=== PATIENT | male | born 1970 | race Caucasian/White ===

== ENCOUNTER 2020-11-20 04:47 | Day surgery (SDC) | payer OTHER ==
[2020-11-19 15:10] VITALS: BMI 31.1
[2020-11-20] MEDS ORDERED: BUPIVACAINE HCL/PF 0.5% (5MG/ML) 10 ML VIAL ONE (11:23)
[2020-11-20] MEDS ORDERED: PROPOFOL 20 ML ONE ×2 (11:47)
[2020-11-20] MEDS ORDERED: MIDAZOLAM HCL 2 MG/2 ML SINGLE DOSE VIAL ONE (11:54)
[2020-11-20] MEDS ORDERED: BUPIVACAINE HCL/PF 0.5% (5MG/ML) 10 ML VIAL IJ ONE (12:25)
[2020-11-20] MEDS ORDERED: NEOSTIGMINE METHYLSULFATE 0.5 MG/ML - 10 ML MDV ONE (12:38)
[2020-11-20] MEDS ORDERED: ONDANSETRON 4 MG/2 ML VIAL IVPUSH PRN (12:44)
[2020-11-20] MEDS ORDERED: oxyCODONE HCL 5 MG TABLET PO PRN ×2 (12:44)
[2020-11-20] MEDS ORDERED: LACTATED RINGERS SOLUTION 1,000 ML IV SCH (12:45)
[2020-11-20 14:06] VITALS: TEMP 97.6
[2020-11-20 16:19] VITALS: BP 137/91; PULSE 68
== END 2020-11-20 15:50 | disposition home or self-care (01) ==
LOC: JASU-SURG 04:47
PROVIDERS: ATTEND Surgery
PROC: 0WQF0ZZ Repair Abdominal Wall, Open Approach (ICD-10-PCS; principal; 2020-11-20 12:00)
DX: K42.9 Umbilical hernia without obstruction or gangrene (principal)
CPT/HCPCS: 88302-TC; 94760